=== PATIENT | male | born 1975 | race Caucasian/White ===

== ENCOUNTER 2021-03-11 14:42 | Emergency (ER) | payer OTHER, SELFPAY ==
[2021-03-11 15:14] VITALS: BP 130/86; PULSE 133; RESP 16; TEMP 37.4; O2SAT 98
--- NOTE | 2021-03-11 15:30 | ED.URI ---
HPI - URI/Sore Throat General Chief Complaint: Upper Respiratory Infection Stated Complaint: Sore Throat, Fatigue and body aches Time Seen by Provider: 03/11/21 15:30 Source: patient and RN notes reviewed Mode of arrival: ambulatory Limitations: no limitations History of Present Illness HPI Narrative: 45 year old male who presents to [facility] with complaints of severe sore throat, headache, cough, body aches and extreme fatigue since Monday morning.. Patient states that he has been sleeping for the past 3 days, has taken Tylenol, Ibuprofen and Dayquil for his symptoms without resolution. Patient denies any shortness of breath, states that his cough is not productive, reports that his throat is burning and has sharp pain with swallowing, rates his pain 5/10 MD elicited complaint: sore throat Onset (ago): day(s) (3) Consistency: constant Severity: moderate Pain scale (0-10): 5 Description of mucous: clear Able to tolerate fluids by mouth: Yes Exacerbating factors: swallowing Relieving factors: nothing Associated symptoms: fever, chills, myalgias, headache, rhinorrhea, sore throat and cough Treatments prior to arrival: ibuprofen and cold medicine Related Data Allergies Allergy/AdvReac Type Severity Reaction Status Date / Time No Known Allergies Allergy Verified 03/11/21 15:04 Review of Systems Review of Systems: Narrative: CONSTITUTIONAL: Positive fever, chills, or sweats. EYES: Denies visual changes, redness, or discharge. ENT: Positive rhinorrhea, congestion, sore throat, no otalgia. CARDIOVASCULAR: Denies chest pain, palpitations, or edema. RESPIRATORY: Positive for cough or dyspnea. GASTROINTESTINAL: Denies abdominal pain, nausea, vomiting, or diarrhea. GENITOURINARY: Denies dysuria or hematuria. SKIN: Denies rash or itching. MUSCULOSKELETAL: Denies back pain, joint pain, positive for body aches NEUROLOGIC: Positive for headache,no numbness, or weakness.states fatigue PSYCHIATRIC: Denies anxiety or depression. All systems reviewed & are unremarkable except as noted in HPI and below PMFSH Past Medical History Medical History (Updated 03/13/21 @ 17:37 by Talisha James NP) HNP (herniated nucleus pulposus), lumbar Surgical History Surgical History (Updated 03/13/21 @ 17:36 by Talisha James NP) Hx of tonsillectomy Family History Family History (Updated 03/13/21 @ 17:36 by Talisha James NP) Other Breast cancer Diabetes mellitus FH: stomach cancer Social History Social History Gender identity (if verbalized by the patient): Male Comments At time of signature, agree with nursing past medical, surgical, social and family history. There is no relevant family history pertinent to the presenting complaint Exam Narrative: Exam Narrative: GENERAL Illl-appearing, well-nourished, and in no acute distress. HEAD: Normocephalic, atraumatic. EYES: PERRLA and EOMI. ENT: Nares red, clear rhinorrhea no epistaxis. Mucous membranes moist.TM's normal with good light reflex, throat red irritated with painful swallowing, no lesions or exudates, no tonsils, post nasal drainage NECK: Supple.no lymphadenopathy CHEST: Decreased to auscultation. No respiratory distress.SAO2 98% on room air, dry cough noted HEART: Tachycardic rate and rhythm. No murmur heard. Normal peripheral pulses. ABDOMEN: Soft, nontender, nondistended, normal active bowel sounds. EXTREMITIES: Normal range of motion. No edema. SKIN: Warm, dry, no rash. NEURO: No focal deficits. Alert and oriented x3. Course Vital Signs Vital signs: Vital Signs Temperature 37.4 C 03/11/21 15:14 Pulse Rate 133 H 03/11/21 15:14 Respiratory Rate 16 03/11/21 15:14 Blood Pressure 130/86 03/11/21 15:14 Pulse Oximetry 98 03/11/21 15:14 Temperature 37.4 C 03/11/21 15:14 Pulse Rate 133 H 03/11/21 15:14 Respiratory Rate 16 03/11/21 15:14 Blood Pressure 130/86 03/11/21 15:14
[2021-03-12 19:11] LABS: SARS-CoV-2 RNA PCR Negative
== END 2021-03-11 16:28 | disposition home or self-care (01) ==
PROVIDERS: Emergency Provider Registered Nurse
DX: J06.9 Acute upper respiratory infection, unspecified (principal); Z20.822 Contact with and (suspected) exposure to COVID-19
CPT/HCPCS: 87081; 87426; 87804; 87880; 99213; C9803; G0463; U0003; U0005